=== PATIENT | male | born 2000 | race Caucasian/White ===

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

== ENCOUNTER 2019-02-28 11:20 | Emergency (ER) | payer OTHER ==
[2019-02-28 12:13] VITALS: BP 117/70
--- NOTE | 2019-02-28 12:21 | UC ---
Respiratory Complaint HPI - HPI Summary HPI Summary: cough x 4 days cough is dry , nasal congestion , pnd, sore throat, no fever, + chills, body aches - History of Current Complaint Chief Complaint: UCGeneralIllness Stated Complaint: RUNY NOSE,HEAD/CHEST CONGESTION,SOOD,ST Time Seen by Provider: 02/28/19 12:05 Hx Obtained From: Patient Onset/Duration: Gradual Onset, Lasting Days - 4, Still Present Timing: Constant Severity Initially: Moderate Severity Currently: Moderate Pain Intensity: 6 Character: Cough: Nonproductive Aggravating Factors: Exertion, Deep Breaths Alleviating Factors: Nothing Associated Signs And Symptoms: Positive: Chills, URI, Nasal Congestion. Negative: Dyspnea, Fever, Pleuritic Chest Pain, Wheezing, Hemoptysis, Dizziness , Calf Pain, Calf Swelling, Hoarseness, Sinus Discomfort - Allergies/Home Medications Allergies/Adverse Reactions: Allergies Allergy/AdvReac Type Severity Reaction Status Date / Time No Known Allergies Allergy Verified 02/28/19 12:10 PMH/Surg Hx/FS Hx/Imm Hx Previously Healthy: Yes - Surgical History Surgical History: None - Family History Known Family History: Positive: None, Other - parents alive and healthy - Social History Alcohol Use: Rare Substance Use Type: None Smoking Status (MU): Never Smoked Tobacco - Immunization History Vaccination Up to Date: Yes Review of Systems All Other Systems Reviewed And Are Negative: Yes Constitutional: Positive: Negative Skin: Positive: Negative Eyes: Positive: Negative ENT: Positive: Sore Throat, Nasal Discharge Respiratory: Positive: Cough Cardiovascular: Positive: Negative Is Patient Immunocompromised?: No Physical Exam Triage Information Reviewed: Yes Appearance: Well-Appearing, No Pain Distress, Well-Nourished Vital Signs: Initial Vital Signs Temp 99.1 F 02/28/19 12:10 Pulse 87 02/28/19 12:10 Resp 13 02/28/19 12:10 BP 117/70 02/28/19 12:10 Pulse Ox 98 02/28/19 12:10 Vital Signs Reviewed: Yes Eye Exam: Normal Eyes: Positive: Conjunctiva Clear ENT: Positive: Normal ENT inspection, Hearing grossly normal, Pharynx normal, Nasal congestion, TMs normal. Negative: Tonsillar swelling, Tonsillar exudate Neck: Positive: Supple, Nontender, No Lymphadenopathy Respiratory: Positive: Chest non-tender, Lungs clear, Normal breath sounds Cardiovascular: Positive: RRR, No Murmur, Pulses Normal Abdominal Exam: Normal Skin Exam: Normal Respiratory Course/Dx - Differential Dx/Diagnosis Provider Diagnosis: URI (upper respiratory infection) Discharge ED - Sign-Out/Discharge Documenting (check all that apply): Patient Departure All imaging exams completed and their final reports reviewed: No Studies - Discharge Plan Condition: Stable Disposition: HOME Patient Education Materials: Upper Respiratory Infection (ED) Referrals: Zain Landa NP [Primary Care Provider] - If Needed - Billing Disposition and Condition Condition: STABLE Disposition: Home
== END 2019-02-28 12:26 | disposition home or self-care (01) ==
LOC: UCCORT 11:20
DX: J06.9 Acute upper respiratory infection, unspecified (principal)
CPT/HCPCS: 99211; G0463